=== PATIENT | male | born 1990 ===

== ENCOUNTER 2024-07-15 11:54 | Emergency (ER) | payer SELFPAY | END 2024-07-15 12:20 | disposition left against medical advice (07) | LOC: DL.ED 11:54 | DX: G40.909 Epilepsy, unspecified, not intractable, without status epilepticus (principal); S05.32XA Ocular laceration without prolapse or loss of intraocular tissue, left eye, initial encounter; Z53.20 Procedure and treatment not carried out because of patient's decision for unspecified reasons; X58.XXXA Exposure to other specified factors, initial encounter | CPT/HCPCS: 99284; 99285 ==